=== PATIENT | female | born 1930 | race Caucasian/White ===

== ENCOUNTER 2018-10-09 11:23 | Emergency (ER) | payer OTHER ==
[~2018-10-09] VITALS: Ht 152.4 cm; Wt 54.4 kg
[2018-10-09] MEDS ORDERED: LANTUS SOL100 UNIT/1 (11:33)
[2018-10-09] MEDS ORDERED: LIPITOR20 MG (11:34)
[2018-10-09] MEDS ORDERED: COZAAR25 MG (11:34)
[2018-10-09] MEDS ORDERED: LEVOTHYROXINE25 MCG (11:34)
== END 2018-10-09 14:08 | disposition home or self-care (01) ==
LOC: ER 11:23
DX: E11.65 Type 2 diabetes mellitus with hyperglycemia (principal)

== ENCOUNTER 2018-12-20 14:07 | Emergency (ER) | payer OTHER ==
[~2018-12-20] VITALS: Ht 152.4 cm; Wt 54.0 kg
[~2018-12-20 14:07] MED LIST: COZAAR25 MG; LANTUS SOL100 UNIT/1; LEVOTHYROXINE25 MCG; LIPITOR20 MG
[2018-12-20] MEDS ORDERED: CARVEDILOL12.5 MG (14:44)
== END 2018-12-20 22:19 | disposition home or self-care (01) ==
LOC: ER 14:07
DX: E11.65 Type 2 diabetes mellitus with hyperglycemia (principal)